=== PATIENT | male | born 1980 | race Two or more races ===

== ENCOUNTER 2018-11-09 16:43 | Emergency (ER) | payer MEDICAID, OTHER ==
[~2018-11-09] VITALS: Ht 182.9 cm; Wt 105.2 kg
[2018-11-09] MEDS ORDERED: SODIUM CHLORIDE 0.9% 1,000 ML IVB ONE (17:19)
[2018-11-09 18:02] LABS: Basophils # (auto) 0 uL; Basophils % (auto) 0.3 % (0.0-2.0); Eosinophils # (auto) 0 uL; Eosinophils % (auto) 0.2 % (0.0-7.0); Hematocrit 40.6 % (41.0-53.0); Hemoglobin 13.7 g/dL (13.5-17.5); Lymphocytes # (auto) 2.2 uL; Mean Corpuscular Hemoglobin 32.7 pg (28.0-32.0); Mean Corpuscular Hgb Conc. 33.7 g/dL (32.0-36.0); Monocytes # (auto) 0.2 uL; Neutrophils # (auto) 3.8 uL; Neutrophils % (auto) 61.5 % (37.0-80.0); Platelet Count (auto) 146 10^3/uL (140-450); Red Blood Cells 4.19 10^6/uL (4.5-5.90); Red Cell Distribution Width 13.3 % (11.8-14.3); White Blood Cell 6.2 10^3/uL (4.4-10.8)
[2018-11-09 18:24] LABS: Urine Bacteria NONE SEEN /hpf (None Seen); Urine Blood Negative /uL (Negative); Urine Specific Gravity 1.002 (1.001-1.035); Urine WBC <1 /hpf (0 - 3)
[2018-11-09 18:27] LABS: Albumin 3.5 g/dL (3.4-5.0); BUN/Creatinine Ratio 10.3; Calcium 7.6 mg/dL (8.5-10.1); Potassium 3.4 mmol/L (3.5-5.1)
[2018-11-09] MEDS ORDERED: FOLIC ACID 1 MG, MULTIPLE VITAMIN 10 ML, MAGNESIUM SULF SDV 50% 8 MEQ, THIAMINE INJ 100... INJ SCH ×5 (18:30)
[2018-11-09 18:31] LABS: Bilirubin, Total 0.4 mg/dL (0.2-1.0); Total Protein 6.3 g/dL (6.4-8.2)
[2018-11-09 18:35] VITALS: BP 99/60
[2018-11-09 19:01] LABS: Amphetamine Screen, Urine NEGATIVE (NEGATIVE); Barbiturate Scree,Urine NEGATIVE (NEGATIVE); Benzodiazephine Screen, Urine NEGATIVE (NEGATIVE); Cannabinoid Screen, Urine NEGATIVE (NEGATIVE); Cocaine Screen, Urine NEGATIVE (NEGATIVE)
[2018-11-09 19:13] LABS: Opiate Scree,Urine NEGATIVE (NEGATIVE); Phencyclidine Screen, Urine NEGATIVE (NEGATIVE)
== END 2018-11-10 01:38 | disposition left against medical advice (07) ==
LOC: ER 16:43 → EDBD 16:43 → ER 11-10 01:38
DX: F10.129 Alcohol abuse with intoxication, unspecified (principal); F17.210 Nicotine dependence, cigarettes, uncomplicated; F41.9 Anxiety disorder, unspecified; F31.9 Bipolar disorder, unspecified; Y90.8 Blood alcohol level of 240 mg/100 ml or more
CPT/HCPCS: 36415; 80053; 80307; 80320; 81001; 85025; 94761; 96365; 96366; 99283; J3411; J3475; J7030

== ENCOUNTER 2018-11-10 04:10 | Emergency (ER) | payer MEDICAID ==
[~2018-11-10] VITALS: Ht 188 cm; Wt 99.8 kg
[2018-11-10 06:10] LABS: Urine Bacteria NONE SEEN /hpf (None Seen); Urine Blood Negative /uL (Negative); Urine Mucus FEW (None Seen); Urine WBC 1 /hpf (0 - 3)
[2018-11-10 06:11] LABS: Amphetamine Screen, Urine NEGATIVE (NEGATIVE); Barbiturate Scree,Urine NEGATIVE (NEGATIVE); Benzodiazephine Screen, Urine NEGATIVE (NEGATIVE); Cannabinoid Screen, Urine NEGATIVE (NEGATIVE); Cocaine Screen, Urine NEGATIVE (NEGATIVE); Opiate Scree,Urine NEGATIVE (NEGATIVE); Phencyclidine Screen, Urine NEGATIVE (NEGATIVE)
[2018-11-10 07:25] VITALS: BP 138/78
== END 2018-11-10 07:55 | disposition left against medical advice (07) ==
LOC: ER 04:10
DX: F10.10 Alcohol abuse, uncomplicated (principal); Z53.21 Procedure and treatment not carried out due to patient leaving prior to being seen by health care provider
CPT/HCPCS: 80307; 81001

== ENCOUNTER 2018-12-02 14:41 | Emergency (ER) | payer MEDICAID ==
[~2018-12-02] VITALS: Ht 188 cm; Wt 145.1 kg
[2018-12-02] MEDS ORDERED: SODIUM CHLORIDE 0.9% 1,000 ML IVB ONE (14:46)
[2018-12-02] MEDS ORDERED: ONDANSETRON HCL 4 MG/2 ML VIAL IV ONE (15:00)
[2018-12-02 15:39] LABS: Basophils # (auto) 0 uL; Basophils % (auto) 0.3 % (0.0-2.0); Eosinophils # (auto) 0 uL; Hematocrit 39.2 % (41.0-53.0); Lymphocytes # (auto) 1.4 uL; Lymphocytes % (auto) 27.2 % (10.0-50.0); Mean Corpuscular Hemoglobin 32.3 pg (28.0-32.0); Mean Corpuscular Hgb Conc. 33.2 g/dL (32.0-36.0); Monocytes # (auto) 0.5 uL; Monocytes % (auto) 10.5 % (0.0-12.0); Neutrophils # (auto) 3.1 uL; Nucleated Red Blood Cells % 0.2 %; Platelet Count (auto) 153 10^3/uL (140-450); Red Blood Cells 4.04 10^6/uL (4.5-5.90)
[2018-12-02 16:03] LABS: Salicylate 2.5 mg/dL (2.8-20.0)
[2018-12-02 16:05] LABS: Albumin 3.9 g/dL (3.4-5.0); Calcium 8.3 mg/dL (8.5-10.1); Magnesium 2.1 mg/dL (1.6-2.6)
[2018-12-02 16:06] LABS: Acetaminophen < 2.0 ug/mL (10-30)
[2018-12-02 16:07] LABS: Bilirubin, Total 1.4 mg/dL (0.2-1.0); Total Protein 7.1 g/dL (6.4-8.2)
[2018-12-02 16:24] LABS: Potassium 2.9 mmol/L (3.5-5.1)
[2018-12-02] MEDS ORDERED: POTASSIUM CHL 20 Meq TABLET PO ONE (16:45)
[2018-12-03 07:57] LABS: Alcohol, Urine < 3.0 mg/dL (0-5); Amphetamine Screen, Urine POSITIVE (NEGATIVE); Barbiturate Scree,Urine NEGATIVE (NEGATIVE); Benzodiazephine Screen, Urine NEGATIVE (NEGATIVE); Cannabinoid Screen, Urine POSITIVE (NEGATIVE); Cocaine Screen, Urine NEGATIVE (NEGATIVE); Opiate Scree,Urine NEGATIVE (NEGATIVE); Phencyclidine Screen, Urine NEGATIVE (NEGATIVE)
[2018-12-03 08:06] LABS: Urine Bacteria NONE SEEN /hpf (None Seen); Urine Blood Negative /uL (Negative); Urine Mucus FEW (None Seen); Urine Specific Gravity 1.034 (1.001-1.035); Urine WBC 1 /hpf (0 - 3)
[2018-12-04] MEDS ORDERED: LOPERAMIDE HCL 2 MG CAP PO ONE (12:15)
[2018-12-04] MEDS: LORazepam 0.5 MG TAB PO PRN (14:30)
[2018-12-05] MEDS: LORazepam 0.5 MG TAB PO PRN ×3 (11:15→22:58)
[2018-12-05] MEDS ORDERED: ACETAMINOPHEN 325 MG TAB PO ONE (19:45)
[2018-12-05] MEDS ORDERED: DIPHENOXYLATE W/ATROPINE 2.5 MG TAB PO ONE (19:45)
[2018-12-05] MEDS ORDERED: QUEtiapine FUMARATE 100 MG TAB ONE (22:43)
[2018-12-05] MEDS ORDERED: LORazepam 0.5 MG TAB ONE (22:47)
[2018-12-05] MEDS: QUEtiapine FUMARATE 100 MG TAB PO SCH (22:57)
[2018-12-06] MEDS ORDERED: QUEtiapine FUMARATE 100 MG TAB ONE (10:25)
[2018-12-06] MEDS: QUEtiapine FUMARATE 100 MG TAB PO SCH ×2 (10:48→22:00)
[2018-12-07] MEDS ORDERED: QUEtiapine FUMARATE 100 MG TAB ONE (09:06)
[2018-12-07] MEDS: QUEtiapine FUMARATE 100 MG TAB PO SCH ×2 (09:23→21:42)
[2018-12-07] MEDS ORDERED: LOPERAMIDE HCL 2 MG CAP ONE (14:44)
[2018-12-07] MEDS ORDERED: LOPERAMIDE HCL 2 MG CAP PO PRN (14:45)
[2018-12-07] MEDS ORDERED: LORazepam 2MG/ML-1ML VIAL IM ONE (23:15)
[2018-12-08] MEDS: QUEtiapine FUMARATE 100 MG TAB PO SCH ×2 (10:00→22:21)
[2018-12-08] MEDS ORDERED: QUEtiapine FUMARATE 100 MG TAB ONE (14:09)
[2018-12-08 16:17] LABS: Urine WBC None Seen /hpf (0 - 3)
[2018-12-08 16:22] LABS: Urine Bacteria NONE SEEN /hpf (None Seen); Urine Blood Negative /uL (Negative); Urine Specific Gravity 1.007 (1.001-1.035)
[2018-12-08 16:37] LABS: Calcium 9.1 mg/dL (8.5-10.1); Potassium 4.4 mmol/L (3.5-5.1)
[2018-12-08 16:37] LABS: Alcohol, Urine < 3.0 mg/dL (0-5); Amphetamine Screen, Urine NEGATIVE (NEGATIVE); Barbiturate Scree,Urine NEGATIVE (NEGATIVE); Benzodiazephine Screen, Urine NEGATIVE (NEGATIVE); Cannabinoid Screen, Urine NEGATIVE (NEGATIVE); Cocaine Screen, Urine NEGATIVE (NEGATIVE); Opiate Scree,Urine NEGATIVE (NEGATIVE); Phencyclidine Screen, Urine NEGATIVE (NEGATIVE)
[2018-12-08] MEDS ORDERED: LORazepam 0.5 MG TAB ONE (16:39)
[2018-12-08 16:41] LABS: BUN/Creatinine Ratio 12.6; Bilirubin, Total 0.4 mg/dL (0.2-1.0); Total Protein 7.7 g/dL (6.4-8.2)
[2018-12-08] MEDS: LORazepam 0.5 MG TAB PO PRN (16:42)
[2018-12-09] MEDS ORDERED: QUEtiapine FUMARATE 100 MG TAB ONE (10:30)
[2018-12-09] MEDS: QUEtiapine FUMARATE 100 MG TAB PO SCH ×2 (10:39→21:17)
[2018-12-09] MEDS ORDERED: LORazepam 0.5 MG TAB ONE (15:15)
[2018-12-09] MEDS: LORazepam 0.5 MG TAB PO PRN (15:20)
[2018-12-09 19:24] VITALS: BP 107/71
== END 2018-12-10 05:47 | disposition home or self-care (01) ==
LOC: EDUNIT# 14:41 → EDBD 14:41 → ER 14:41
DX: T43.592A Poisoning by other antipsychotics and neuroleptics, intentional self-harm, initial encounter (principal); R40.4 Transient alteration of awareness; F20.9 Schizophrenia, unspecified; E87.6 Hypokalemia; F41.9 Anxiety disorder, unspecified; F32.9 Major depressive disorder, single episode, unspecified; F17.210 Nicotine dependence, cigarettes, uncomplicated; F12.90 Cannabis use, unspecified, uncomplicated; F15.90 Other stimulant use, unspecified, uncomplicated; Z59.0 Homelessness; Y92.89 Other specified places as the place of occurrence of the external cause
CPT/HCPCS: 36415; 80053; 80307; 80320; 80329; 81001; 83735; 84132; 85025; 93005; 94761; 96360; 99285; J7030